=== PATIENT | female | born 1955 | race Caucasian/White ===

== ENCOUNTER → 2024-08-05 | Outpatient (CLI) | payer MEDICARE, OTHER, SELFPAY ==
--- NOTE | 2024-08-05 14:37 | NEURO ---
NCS and/or EMG Patient Report Ordering Doctor: Jose Tovar DATE OF SERVICE: 08/05/24 Clinical Summary: 69 year old female with symptoms of numbness, tingling, and pain in the right hand. She had a wrist fracture this past March s/p surgery one week later. Nerve Conduction Studies Summary: Nerve conduction studies were performed in the right upper extremity. The right median-D2 SNAP distal latency was prolonged with reduced amplitude. Otherwise, nerve conductions in the right upper extremity were within normal ranges. Needle Examination Summary: Needle examination of select muscles of the right upper extremity demonstrated a higher proportion of motor unit action potentials with reduced recruitment, increased amplitude, increased duration, and polyphasia in the right abductor pollicis brevis muscle. Impression: This is an abnormal study. There is electrodiagnostic evidence of the following - 1) Severe, right median mononeuropathy at the wrist (carpal tunnel syndrome), with secondary motor fiber axonal loss There is no electrodiagnostic evidence of a right ulnar mononeuropathy or cervical radiculopathy. Multi Select Codes Neurology Neurology Interp Codes: 76534-87 Musc test done w/n test comp (interp) (1) and 74227-10 Nrv cndj tst 5-6 studies (interp)
== END | disposition home or self-care (01) ==
LOC: PSN 13:41
PROVIDERS: PCP Family Medicine; Referring Provider Orthopaedic Surgery; Visit Provider Orthopaedic Surgery
DX: R20.2 Paresthesia of skin (principal)
CPT/HCPCS: 95886; 95909